=== PATIENT | male | born 1990 | race Caucasian/White ===

== ENCOUNTER 2022-10-22 20:22 | Emergency (ER) | payer MEDICAID ==
[~2022-10-22] VITALS: Ht 170.2 cm; Wt 63.6 kg
[2022-10-22 20:25] VITALS: BP 129/88
== END 2022-10-22 23:28 | disposition home or self-care (01) ==
LOC: EMS 20:30
DX: K64.9 Unspecified hemorrhoids (principal); F17.210 Nicotine dependence, cigarettes, uncomplicated; F12.90 Cannabis use, unspecified, uncomplicated; F15.90 Other stimulant use, unspecified, uncomplicated
CPT/HCPCS: 99281; Z7502